=== PATIENT | female | born 1940 | race Caucasian/White ===

== ENCOUNTER → 2016-07-16 | Outpatient (CLI) | payer MEDICARE, OTHER | LOC: OD 10:21 | PROVIDERS: ATTEND Nurse Practitioner | DX: M25.511 Pain in right shoulder (principal); M25.512 Pain in left shoulder; M19.012 Primary osteoarthritis, left shoulder; M19.011 Primary osteoarthritis, right shoulder ==

== ENCOUNTER → 2016-10-10 | Outpatient (CLI) | payer MEDICARE, OTHER ==
--- NOTE | 2016-10-10 10:55 | RADIOLOGY REPORT (SQ) ---
EXAM DESCRIPTION: CHEST PA/LATERAL COMPLETED DATE/TIME: 10/10/2016 10:31 am REASON FOR STUDY: PRE OP COMPARISON: None. EXAM PARAMETERS: NUMBER OF VIEWS: two views TECHNIQUE: Digital Frontal and Lateral radiographic views of the chest acquired. RADIATION DOSE: NA LIMITATIONS: none FINDINGS: LUNGS AND PLEURA: No opacities, masses or pneumothorax. No pleural effusion. MEDIASTINUM AND HILAR STRUCTURES: No masses or contour abnormalities. HEART AND VASCULAR STRUCTURES: Heart normal size. No evidence for failure. BONES: No acute findings. HARDWARE: None in the chest. OTHER: No other significant finding. IMPRESSION: NO SIGNIFICANT RADIOGRAPHIC FINDING IN THE CHEST. TECHNICAL DOCUMENTATION: JOB ID: [id number] [employer]- All Rights Reserved
[2016-10-10 10:56] LABS: ABSOLUTE BASOPHILS # (AUTO) 0.1 10^3/uL (0.0-0.2); ABSOLUTE EOSINOPHILS # (AUTO) 0.8 10^3/uL (0.0-0.6); ABSOLUTE LYMPHOCYTES (AUTO) 1.9 10^3/uL (0.5-4.7); ABSOLUTE MONOCYTES (AUTO) 0.7 10^3/uL (0.1-1.4); BASOPHILS % (AUTO) 0.7 % (0-2); EOSINOPHILS % (AUTO) 6.9 % (0-6); HEMATOCRIT 39.3 % (36.0-47.0); HEMOGLOBIN 12.9 g/dL (12.0-15.5); HGB HCT DIFFERENCE -0.6; LYMPHOCYTES % (AUTO) 16.6 % (13-45); MEAN CORPUSCULAR HEMOGLOBIN 31.7 pg (27.0-33.4); MEAN CORPUSCULAR HGB CONC 32.9 g/dL (32.0-36.0); MEAN CORPUSCULAR VOLUME 96 fl (80-97); MONOCYTES % (AUTO) 6.2 % (3-13); RED BLOOD COUNT 4.08 10^6/uL (3.72-5.28); RED CELL DISTRIBUTION WIDTH 13.1 % (11.5-14.0); SEGMENTED NEUTROPHILS % (AUTO) 69.6 % (42-78); WHITE BLOOD COUNT 11.5 10^3/uL (4.0-10.5)
[2016-10-10 11:21] LABS: ANION GAP 9 (5-19); BLOOD UREA NITROGEN 14 mg/dL (7-20); CALCIUM 9.9 mg/dL (8.4-10.2); CARBON DIOXIDE 27 mmol/L (22-30); CHLORIDE 107 mmol/L (98-107); CREATININE RESULT 0.82 mg/dL (0.52-1.25); GLUCOSE 97 mg/dL (75-110); POTASSIUM 4.2 mmol/L (3.6-5.0); SODIUM 143.2 mmol/L (137-145)
[2016-10-10 18:57] LABS: APPEARANCE,URINE CLEAR; BILIRUBIN,URINE NEGATIVE (NEGATIVE); GLUCOSE, URINE NEGATIVE (NEGATIVE); KETONES,URINE NEGATIVE (NEGATIVE); LEUKOCYTE ESTERASE,URINE NEGATIVE (NEGATIVE); NITRITE,URINE NEGATIVE (NEGATIVE); PROTEIN,URINE NEGATIVE (NEGATIVE); URINE SPECIFIC GRAVITY 1.004; UROBILINOGEN,URINE NEGATIVE mg/dL (<2.0)
--- NOTE | 2016-10-11 17:29 | EKG REPORT ---
SEVERITY:- ABNORMAL ECG - SINUS RHYTHM LEFT ATRIAL ABNORMALITY NONSPECIFIC T ABNORMALITIES, INFERIOR LEADS : Confirmed by: Jose Carlos Mcgill 11-Oct-2016 17:29:01
== END ==
LOC: OD 09:54
PROVIDERS: ATTEND Orthopaedic Surgery
DX: Z01.810 Encounter for preprocedural cardiovascular examination (principal); Z01.812 Encounter for preprocedural laboratory examination; Z01.818 Encounter for other preprocedural examination
CPT/HCPCS: 36415; 71020; 80048; 81001; 85025; 93005; 93010

== ENCOUNTER → 2016-11-28 | Outpatient (CLI) | payer MEDICARE, OTHER ==
[2016-11-28 10:02] LABS: HEMATOCRIT 39.6 % (36.0-47.0); HEMOGLOBIN 13.4 g/dL (12.0-15.5); HGB HCT DIFFERENCE 0.6; MEAN CORPUSCULAR HEMOGLOBIN 33.2 pg (27.0-33.4); MEAN CORPUSCULAR HGB CONC 33.9 g/dL (32.0-36.0); MEAN CORPUSCULAR VOLUME 98 fl (80-97); RED BLOOD COUNT 4.04 10^6/uL (3.72-5.28); RED CELL DISTRIBUTION WIDTH 13.5 % (11.5-14.0); WHITE BLOOD COUNT 7.9 10^3/uL (4.0-10.5)
[2016-11-28 10:35] LABS: ALANINE AMINOTRANSFERASE 35 U/L (9-52); ALBUMIN 4.3 g/dL (3.5-5.0); ALKALINE PHOSPHATASE 80 U/L (38-126); ANION GAP 11 (5-19); ASPARTATE AMINO TRANSFERASE 30 U/L (14-36); BILIRUBIN,DIRECT 0.4 mg/dL (0.0-0.4); BILIRUBIN,TOTAL 0.9 mg/dL (0.2-1.3); BLOOD UREA NITROGEN 13 mg/dL (7-20); CALCIUM 10.1 mg/dL (8.4-10.2); CARBON DIOXIDE 27 mmol/L (22-30); CHLORIDE 103 mmol/L (98-107); CHOLESTEROL 224.28 mg/dL (0-200); CREATININE RESULT 0.95 mg/dL (0.52-1.25); Direct HDL 53 mg/dL (>40); GLUCOSE 97 mg/dL (75-110); MAGNESIUM 1.9 mg/dL (1.6-2.3); POTASSIUM 4.1 mmol/L (3.6-5.0); SODIUM 140.8 mmol/L (137-145); TOTAL PROTEIN 7.3 g/dL (6.3-8.2); TRIGLYCERIDES 198 mg/dL (<150)
[2016-11-28 10:45] LABS: DIRECT LDL 136 mg/dL (<100)
[2016-11-28 10:56] LABS: VLDL CHOLESTEROL 39.6 mg/dL (10-31)
== END ==
LOC: OD 09:02
PROVIDERS: ATTEND Internal Medicine Cardiovascular Disease
DX: E78.00 Pure hypercholesterolemia, unspecified (principal); Z79.899 Other long term (current) drug therapy
CPT/HCPCS: 36415; 80048; 80061; 80076; 83735; 84443; 85027

== ENCOUNTER 2017-01-22 07:39 | Day surgery (SDC) | payer MEDICARE, OTHER ==
[2017-01-15 09:00] LABS: ABSOLUTE BASOPHILS # (AUTO) 0.1 10^3/uL (0.0-0.2); ABSOLUTE EOSINOPHILS # (AUTO) 0.3 10^3/uL (0.0-0.6); ABSOLUTE MONOCYTES (AUTO) 0.5 10^3/uL (0.1-1.4); ABSOLUTE NEUT (AUTO) 3.9 10^3/uL (1.7-8.2); BASOPHILS % (AUTO) 0.9 % (0-2); EOSINOPHILS % (AUTO) 3.9 % (0-6); HEMATOCRIT 41.2 % (36.0-47.0); HEMOGLOBIN 14.1 g/dL (12.0-15.5); HGB HCT DIFFERENCE 1.1; LYMPHOCYTES % (AUTO) 30.2 % (13-45); MEAN CORPUSCULAR HEMOGLOBIN 32.9 pg (27.0-33.4); MEAN CORPUSCULAR HGB CONC 34.3 g/dL (32.0-36.0); MEAN CORPUSCULAR VOLUME 96 fl (80-97); MONOCYTES % (AUTO) 7.8 % (3-13); RED CELL DISTRIBUTION WIDTH 13.4 % (11.5-14.0); SEGMENTED NEUTROPHILS % (AUTO) 57.2 % (42-78); WHITE BLOOD COUNT 6.8 10^3/uL (4.0-10.5)
[2017-01-15 09:11] LABS: APPEARANCE,URINE CLEAR; BILIRUBIN,URINE NEGATIVE (NEGATIVE); GLUCOSE, URINE NEGATIVE (NEGATIVE); KETONES,URINE NEGATIVE (NEGATIVE); LEUKOCYTE ESTERASE,URINE NEGATIVE (NEGATIVE); NITRITE,URINE NEGATIVE (NEGATIVE); PROTEIN,URINE NEGATIVE (NEGATIVE); URINE SPECIFIC GRAVITY 1.003; UROBILINOGEN,URINE NEGATIVE mg/dL (<2.0)
[2017-01-15 09:20] LABS: ANION GAP 11 (5-19); BLOOD UREA NITROGEN 14 mg/dL (7-20); CALCIUM 10.6 mg/dL (8.4-10.2); CARBON DIOXIDE 29 mmol/L (22-30); CHLORIDE 102 mmol/L (98-107); CREATININE RESULT 0.92 mg/dL (0.52-1.25); GLUCOSE 102 mg/dL (75-110); SODIUM 142.4 mmol/L (137-145)
--- NOTE | 2017-01-15 10:01 | EKG REPORT ---
SEVERITY:- NORMAL ECG - SINUS RHYTHM : Confirmed by: Velma Berkowitz MD 15-Jan-2017 10:01:17
[~2017-01-22 07:39] MED LIST: BUPIVACAINE HCL 0.5 % INJ/PF 30 ML SDV ONE; CEFAZOLIN 2 GM/D5W RTU 2 GM/50 ML RTUPB IV PRN; EPINEPHRINE INJ/PF 1 MG/1 ML AMPULE ONE; LACTATED RINGERS 1000 ML IV PRN; LIDOCAINE 0.5% INJ-PF (5 MG/ML) 50 ML SDV SUBCUT PRN
[2017-01-22] MEDS ORDERED: FENTANYL CITRATE INJ/PF 250 MCG/5 ML AMPULE ONE (09:05)
[2017-01-22] MEDS ORDERED: IBUPROFEN INJ 800 MG/8 ML VIAL IV ONE (09:06)
[2017-01-22] MEDS ORDERED: MIDAZOLAM 2 MG/2 ML INJ ONE (09:06)
[2017-01-22] MEDS ORDERED: PROPOFOL INJ 200 MG/20 ML VIAL IV ONE (09:06)
[2017-01-22] MEDS ORDERED: ACETAMINOPHEN 100 ML IV ONE (09:06)
[2017-01-22] MEDS ORDERED: DEXAMETHASONE SOD PHOSPHATE INJ 4 MG/1 ML VIAL ONE (09:06)
[2017-01-22] MEDS ORDERED: ONDANSETRON HCL INJ/PF 4 MG/2 ML SDV ONE (09:06)
[2017-01-22] MEDS ORDERED: MORPHINE SULFATE 10 MG/ML INJ ONE (09:07)
[2017-01-22] MEDS ORDERED: PROMETHAZINE HCL INJ 25 MG/1 ML VIAL IV PRN ×2 (10:59)
[2017-01-22] MEDS ORDERED: DIPHENHYDRAMINE HCL 50 MG/ML VIAL IV PRN (10:59)
[2017-01-22] MEDS ORDERED: MEPERIDINE HCL/PF INJ 25 MG/1 ML DISP.SYRIN IV PRN (10:59)
[2017-01-22] MEDS ORDERED: MORPHINE SULFATE 10 MG/ML INJ IV PRN (10:59)
[2017-01-22] MEDS ORDERED: FENTANYL CITRATE INJ/PF 100 MCG/2 ML AMPUL IV PRN ×3 (10:59)
[2017-01-22] MEDS ORDERED: SUCCINYLCHOLINE CHLORIDE INJ 200 MG/10 ML VIAL ONE (11:01)
--- NOTE | 2017-01-22 11:55 | Operative Report ---
Operative Report DATE OF SURGERY: 01/22/17 PREOPERATIVE DIAGNOSIS: Left shoulder full-thickness rotator cuff tear. POSTOPERATIVE DIAGNOSIS: Left shoulder small full-thickness rotator cuff tear OPERATION: Left shoulder arthroscopic rotator cuff repair SURGEON: SEAN HACKETT ANESTHESIA: GA TISSUE REMOVED OR ALTERED: none COMPLICATIONS: None ESTIMATED BLOOD LOSS: 20mL INTRAOPERATIVE FINDINGS: As above PROCEDURE: IMPLANTS: 4.75 bio composite swivel lock 2 DESCRIPTION OF PROCEDURE: Patient was brought to the operating room placed in supine position. After successfully induced and intubated the patient patient was placed in the beachchair position the head and endotracheal tube was secured appropriately. The left shoulder was prepped and draped in a normal surgical fashion. A timeout was done identifying the left shoulder as the correct site. After inflating the glenohumeral joint with sterile saline solution an 11 blade was used to establish the posterior portal. The arthroscope was introduced and return of fluid was seen showing that we successfully penetrated the glenohumeral joint. With the use of spinal needle we're able to vandana the anterior portal and using an 11 blade able to establish anterior portal. A cannula was introduced through the anterior portal. At this point diagnostic scope was done. Patient had a pinhole full-thickness tear of the rotator cuff. A lateral portal was established 11 blade. 4.0mm shaver was introduced and was used to prepare the tear and the bone for preparation of anchor placement. Once I was satisfied with the preparation I then redirected my scope into the subacromial space. I was able to enlarge the tear to allow for anchor placement. A percutaneous incision was then just adjacent to the acromion on the lateral aspect. Through this percutaneous hole the awl was used to prepare the hole for an anchor. [place] was percutaneously sent flushed with the bone just adjacent to the articular margin.. Fiber tape and FiberWire sutures were passed through the anterior portal for proper suture management. With the use of the scorpion and I proceeded to pass the sutures through the rotator cuff tendon with proper suture management was able to pass the strands either through percutaneous hole or the anterior portal. Once I was satisfied with placement of all my sutures I then proceeded to do my arthroscopic knots of the firewire sutures only. Fiber tape was then passed with the FiberWire through the swivel lock. At this point the strands were used to do our lateral row. Bicomposite swivel lock was used and the lateral aspect of the humerus was then cleaned off with a shaver and electrocautery. Once identified once I was replacement I proceeded to use my awl to do my hole. This this point the sutures were adequately tensioned and subluxed for inserted and secured securing and increasing the footprint of the rotator cuff repair. Remaining strands were cut with the arthroscopic cutter. Final pictures were taking showing my repair. At this point fluid from the shoulder was removed camera and instruments were all removed. I proceeded to close my portal sites with 3-0 nylon. Xeroform 4 x 4 dressing followed by ABDs pads and Medipore tape was applied. Patient was placed in a sling and returned to supine position where he was successfully extubated and taken to PACU in stable condition.
[2017-01-22] MEDS ORDERED: OXYCODONE-ACETAMINOPHEN 5-325 MG TABLET PO PRN ×2 (11:57)
--- NOTE | 2017-01-22 11:57 | PDOC DISCHARGE SUMMARY ---
Discharge Summary (SDC) - Discharge Final Diagnosis: Left shoulder arthroscopic rotator cuff repair Date of Surgery: 01/22/17 Discharge Date: 01/22/17 Condition: Good Treatment or Instructions: Patient is instructed to follow up in 10-14 days. Patient instructed to remove dressing in 4 days then can shower and apply Band- Aids as needed. Patient to wear sling for comfort but okay to remove for shower and pendulum exercises. Pendulum exercises are instructed to be done 3 times a day ideally with breakfast, lunch, dinners and showers. Patient instructed to call if there is any signs of redness or drainage fevers or chills. Prescriptions: Oxycodone HCl/Acetaminophen [Percocet 5-325 mg Tablet] 1 - 2 tab PO ASDIR PRN # 60 tablet PRN Reason: Referrals: SANTIAGO PINTO NP-C [Primary Care Provider] - Discharge Diet: As Tolerated Respiratory Treatments at Home: Deep Breathing/Coughing Discharge Activity: No Lifting/Push/Pulling Home Care Assistance: None Needed Report the Following to Your Physician Immediately: Shortness of Breath, Vomiting, Increase in Pain, Fever over 101 Degrees, Unusual Bleeding, Redness, Swelling, Warmth, Drainage-Yellow, Drainage-Cha, Drainage-Green, Drainage-Foul Smelling
[2017-01-22] MEDS: FENTANYL CITRATE INJ/PF 100 MCG/2 ML AMPUL ONE ×2 (12:12→12:17)
[2017-01-22] MEDS ORDERED: ONDANSETRON 4 MG TAB.RAPDIS ONE (15:17)
[2017-01-22 16:02] VITALS: BP 125/62
== END 2017-01-22 15:45 | disposition home or self-care (01) ==
LOC: OROUT 07:39
PROVIDERS: ATTEND Orthopaedic Surgery
PROC: 0LM24ZZ Reattachment of Left Shoulder Tendon, Percutaneous Endoscopic Approach (ICD-10-PCS; principal; 2017-01-22 10:00)
DX: M75.122 Complete rotator cuff tear or rupture of left shoulder, not specified as traumatic (principal); I10 Essential (primary) hypertension; M19.90 Unspecified osteoarthritis, unspecified site; R01.1 Cardiac murmur, unspecified; Z79.01 Long term (current) use of anticoagulants; Z79.1 Long term (current) use of non-steroidal anti-inflammatories (NSAID); Z79.899 Other long term (current) drug therapy
CPT/HCPCS: 93005; 36415 ×2; 84132; 85025; 80048; 81001; 93010; 29827; C1713; J2250; J1100; J0171; A9270 ×2; J3010 ×2; J0330; J2405; J2704; J0690; J0131; J1741; 1630; J2270; S0119

== ENCOUNTER 2017-06-18 08:21 | Day surgery (SDC) | payer MEDICARE, OTHER ==
[2017-06-11 09:44] LABS: APPEARANCE,URINE CLEAR; BILIRUBIN,URINE NEGATIVE (NEGATIVE); COLOR,URINE STRAW; GLUCOSE, URINE NEGATIVE (NEGATIVE); KETONES,URINE NEGATIVE (NEGATIVE); LEUKOCYTE ESTERASE,URINE NEGATIVE (NEGATIVE); NITRITE,URINE NEGATIVE (NEGATIVE); PROTEIN,URINE NEGATIVE (NEGATIVE); URINE SPECIFIC GRAVITY 1.005; UROBILINOGEN,URINE NEGATIVE mg/dL (<2.0)
[2017-06-11 09:45] LABS: ABSOLUTE BASOPHILS # (AUTO) 0.1 10^3/uL (0.0-0.2); ABSOLUTE EOSINOPHILS # (AUTO) 0.6 10^3/uL (0.0-0.6); ABSOLUTE LYMPHOCYTES (AUTO) 1.8 10^3/uL (0.5-4.7); ABSOLUTE MONOCYTES (AUTO) 0.6 10^3/uL (0.1-1.4); ABSOLUTE NEUT (AUTO) 4.8 10^3/uL (1.7-8.2); BASOPHILS % (AUTO) 0.9 % (0-2); EOSINOPHILS % (AUTO) 7.7 % (0-6); HEMATOCRIT 38.7 % (36.0-47.0); HEMOGLOBIN 13.2 g/dL (12.0-15.5); LYMPHOCYTES % (AUTO) 22.7 % (13-45); MEAN CORPUSCULAR HEMOGLOBIN 32.2 pg (27.0-33.4); MEAN CORPUSCULAR HGB CONC 34.1 g/dL (32.0-36.0); MEAN CORPUSCULAR VOLUME 94 fl (80-97); MONOCYTES % (AUTO) 7.8 % (3-13); PLATELET COUNT 313 10^3/uL (150-450); RED BLOOD COUNT 4.11 10^6/uL (3.72-5.28); RED CELL DISTRIBUTION WIDTH 13.2 % (11.5-14.0); SEGMENTED NEUTROPHILS % (AUTO) 60.9 % (42-78); TOTAL CELLS COUNTED % (AUTO) 100 %; WHITE BLOOD COUNT 7.8 10^3/uL (4.0-10.5)
[2017-06-11 10:08] LABS: ANION GAP 12 (5-19); BLOOD UREA NITROGEN 15 mg/dL (7-20); CALCIUM 10.6 mg/dL (8.4-10.2); CARBON DIOXIDE 32 mmol/L (22-30); CHLORIDE 101 mmol/L (98-107); GLUCOSE 110 mg/dL (75-110); POTASSIUM 4.6 mmol/L (3.6-5.0); SODIUM 145.1 mmol/L (137-145)
--- NOTE | 2017-06-11 12:45 | RADIOLOGY REPORT (SQ) ---
EXAM DESCRIPTION: CHEST PA/LATERAL COMPLETED DATE/TIME: 06/11/2017 10:30 am REASON FOR STUDY: PRE OP COMPARISON: 10/10/2016 NUMBER OF VIEWS: Two view. TECHNIQUE: Frontal and lateral radiographic views of the chest acquired. LIMITATIONS: None. FINDINGS: LUNGS AND PLEURA: Minimal vague density adjacent to the left heart border unchanged since the previous study. May represent anterior rib with costochondral junction. MEDIASTINUM AND HILAR STRUCTURES: No masses or contour abnormalities. HEART AND VASCULATURE: Heart normal size. No evidence for failure. BONY STRUCTURES: No acute findings. HARDWARE: None. OTHER: No other significant finding. IMPRESSION: No active cardiopulmonary disease. TECHNICAL DOCUMENTATION: JOB ID: [id number] [email or web address]- All Rights Reserved
--- NOTE | 2017-06-11 13:22 | EKG REPORT ---
SEVERITY:- BORDERLINE ECG - SINUS RHYTHM NONSPECIFIC ST-T CHANGES- INFERIOR LEADS : Confirmed by: Buster Goodwin MD 11-Jun-2017 13:21:44
[~2017-06-18 08:21] MED LIST changes: -CEFAZOLIN 2 GM/D5W RTU 2 GM/50 ML RTUPB IV PRN; +CEFAZOLIN SODIUM 2 GM in DEXTROSE 5%-WATER 100 ML IV PRN; +CEFAZOLIN SODIUM 2 GM in NORMAL SALINE 100 ML IV PRN
[2017-06-18] MEDS ORDERED: SCOPOLAMINE HYDROBROMIDE 1.5 MG PATCH.TD72 TD ONE (10:30)
[2017-06-18] MEDS ORDERED: LIDOCAINE 2% INJ-PF (20 MG/ML) 10 ML AMPUL ONE (11:03)
[2017-06-18] MEDS ORDERED: MIDAZOLAM 2 MG/2 ML INJ ONE (11:04)
[2017-06-18] MEDS ORDERED: FENTANYL CITRATE INJ/PF 100 MCG/2 ML AMPUL ONE ×2 (11:04→13:50)
[2017-06-18] MEDS ORDERED: ONDANSETRON HCL INJ/PF 4 MG/2 ML SDV ONE (11:04)
[2017-06-18] MEDS ORDERED: DEXAMETHASONE SOD PHOSPHATE INJ 4 MG/1 ML VIAL ONE (11:04)
[2017-06-18] MEDS ORDERED: ACETAMINOPHEN 100 ML IV ONE (11:05)
[2017-06-18] MEDS ORDERED: PROPOFOL INJ 200 MG/20 ML VIAL IV ONE (11:05)
[2017-06-18] MEDS ORDERED: EPHEDRINE SULFATE INJ 50 MG/1 ML AMPULE ONE (11:06)
[2017-06-18] MEDS ORDERED: OXYCODONE-ACETAMINOPHEN 5-325 MG TABLET PO PRN ×4 (12:44→15:21)
[2017-06-18] MEDS ORDERED: MORPHINE SULFATE 10 MG/ML INJ IV PRN (12:44)
[2017-06-18] MEDS ORDERED: PROMETHAZINE HCL INJ 25 MG/1 ML VIAL IV PRN ×2 (12:44)
[2017-06-18] MEDS ORDERED: FENTANYL CITRATE INJ/PF 100 MCG/2 ML AMPUL IV PRN ×2 (12:44)
[2017-06-18] MEDS ORDERED: DIPHENHYDRAMINE HCL 50 MG/ML VIAL IV PRN (12:44)
[2017-06-18] MEDS ORDERED: MEPERIDINE HCL/PF INJ 25 MG/1 ML DISP.SYRIN IV PRN (12:44)
--- NOTE | 2017-06-18 13:29 | Operative Report ---
Operative Report DATE OF SURGERY: 06/18/17 PREOPERATIVE DIAGNOSIS: Right shoulder rotator cuff tear and degenerative SLAP tear POSTOPERATIVE DIAGNOSIS: Same OPERATION: Right shoulder arthroscopic rotator cuff repair and subpectoralis biceps tenodesis SURGEON: SEAN HACKETT ANESTHESIA: GA TISSUE REMOVED OR ALTERED: Long head of the biceps COMPLICATIONS: None ESTIMATED BLOOD LOSS: 20 mL INTRAOPERATIVE FINDINGS: As above PROCEDURE: IMPLANTS: Arthrex 4.75 mm by composite swivel lock 2 DESCRIPTION OF PROCEDURE: Patient was brought to the operating room placed in supine position. After successfully induced and intubated the patient patient was placed in the beachchair position the head and endotracheal tube was secured appropriately. The right shoulder was prepped and draped in a normal surgical fashion. A timeout was done identifying the right shoulder as the correct site. After inflating the glenohumeral joint with sterile saline solution an 11 blade was used to establish the posterior portal. The arthroscope was introduced and return of fluid was seen showing that we successfully penetrated the glenohumeral joint. With the use of spinal needle we're able to vandana the anterior portal and using an 11 blade able to establish anterior portal. A cannula was introduced through the anterior portal. At this point diagnostic scope was done. At first glance patient had a degenerative type II SLAP tear and was probed showing the detachment. Also when I turned my attention to the rotator cuff was evidence of showing the full- thickness rotator cuff tear. The articulation was intact. No loose bodies. A lateral portal was established 11 blade. [place] cannula was introduced to secure the lateral portal. 4.0mm shaver was introduced and was used to debride edges of the tear as well as bur the bone for preparation of anchor placement. Once I was satisfied with the preparation I then redirected my scope into the subacromial space. Bursitis that was resected. No large hook of the acromion or spur. The tear was cleaned and the subacromial space and delineated. A percutaneous incision was then just adjacent to the acromion on the lateral aspect. Through this percutaneous hole the awl was used to prepare the hole for an anchor. [place] was percutaneously sent flushed with the bone just adjacent to the articular margin.[Same steps were taken for placement of our second anchor more posteriorly]. Sutures were passed through the anterior portal for proper suture management. With the use of the scorpion and I proceeded to pass the sutures through the rotator cuff tendon with proper suture management was able to pass the strands either through percutaneous hole or the anterior portal. Once I was satisfied with placement of all my sutures I then proceeded to do my arthroscopic knots. At this point the strands were used to do our lateral row. [] Bicomposite swivel lock were used for the lateral row fixation. Lateral aspect of the humerus was then cleaned off with a shaver and electrocautery. Once identified placementof the swivel lock, I proceeded to use my awl to do my hole. This this point the sutures were adequately tensioned and secured. Swivel lock was inserted and screwed in, securing and increasing the footprint of the rotator cuff repair. Remaining strands were cut with the arthroscopic cutter. Final pictures were taking showing my repair. At this point fluid from the shoulder was removed camera and instruments were all removed. I turned my attention to the subpectoralis biceps tenodesis portion of the case. I used a 15 blade and did a inch and a half incision on the anterior aspect of the arm adjacent to the axillary fold. I used electrocautery to obtain hemostasis of the subcutaneous tissue bleed. I used Metzenbaum scissors and 2 pierced and split the fascial tissue covering the biceps and deltoid. I used then combination of my finger and 90 clamp to palpate the long head of biceps and bicipital groove and capturing hook the tendon that was tenotomized. This was pulled through my incision successfully. I used a fiber loop to then secure my muscular tendinous portion which was approximately 2 cm. The remaining biceps was cut and discarded. The loop was, and the 2 strands were then fed through the tenodesis button. These were secured and then I proceeded to use Hom[place] to expose the side of the humeral shaft and was able to used a 4 mm spade tip guidepin to drill the anterior cortex. This was removed and then the loaded button was then inserted and then removing the disposable portion was able to flip the button and securing the biceps onto the anterior cortex of the humerus. Half hitch knots were done to further secure the biceps. Remaining strand was cut with a fiber wire scissors. I used 0 Vicryl to approximate the subcutaneous tissue. I used 3-0 nylon to do closure of my incision. I proceeded to close my portal sites with 3 -0 nylon. Xeroform 4 x 4 dressing followed by ABDs pads and Medipore tape was applied. Patient was placed in a sling and returned to supine position where he was successfully extubated and taken to PACU in stable condition.
--- NOTE | 2017-06-18 13:33 | Discharge Summary ---
Discharge Summary (SDC) - Discharge Final Diagnosis: Right shoulder rotator cuff repair and biceps tenodesis Date of Surgery: 06/18/17 Discharge Date: 06/18/17 Condition: Good Treatment or Instructions: Patient is instructed to follow up in 10-14 days. Patient instructed to remove dressing in 4 days then can shower and apply Band- Aids as needed. Patient to wear sling for comfort but okay to remove for shower and pendulum exercises. Pendulum exercises are instructed to be done 3 times a day ideally with breakfast, lunch, dinners and showers. Patient instructed to call if there is any signs of redness or drainage fevers or chills. Prescriptions: Ondansetron HCl [Zofran 4 mg Tablet] 1 - 2 tab PO Q6HP PRN #20 tablet PRN Reason: Oxycodone HCl/Acetaminophen [Percocet 5-325 mg Tablet] 1 - 2 tab PO ASDIR PRN # 30 tablet PRN Reason: Referrals: SANTIAGO PINTO NP-C [Primary Care Provider] - Discharge Diet: As Tolerated Respiratory Treatments at Home: Deep Breathing/Coughing Discharge Activity: No Driving, No Lifting/Push/Pulling, Walk Frequently Home Care Assistance: None Needed Report the Following to Your Physician Immediately: Shortness of Breath, Vomiting, Increase in Pain, Fever over 101 Degrees, Unusual Bleeding, Redness, Swelling, Warmth, Increased Soreness, Drainage-Yellow, Drainage-Cha, Drainage- Green, Drainage-Foul Smelling
[2017-06-18] MEDS: FENTANYL CITRATE INJ/PF 100 MCG/2 ML AMPUL IV PRN ×2 (14:02→14:05)
[2017-06-18] MEDS ORDERED: HYDROMORPHONE HCL INJ/PF 2 MG/ML AMPULE ONE (15:55)
[2017-06-18] MEDS ORDERED: SUCCINYLCHOLINE CHLORIDE INJ 200 MG/10 ML VIAL ONE (16:16)
[2017-06-18] MEDS ORDERED: NEOSTIGMINE METHYLSULFATE 10 MG/10 ML VIAL ONE (16:16)
[2017-06-18] MEDS ORDERED: VECURONIUM BROMIDE INJ 10 MG VIAL IV ONE (16:16)
[2017-06-18] MEDS ORDERED: GLYCOPYRROLATE INJ 0.4 MG/2 ML VIAL ONE (16:16)
[2017-06-18 16:58] VITALS: BP 132/61
== END 2017-06-18 16:55 | disposition home or self-care (01) ==
LOC: OROUT 08:21
PROVIDERS: ATTEND Orthopaedic Surgery
PROC: 0LM14ZZ Reattachment of Right Shoulder Tendon, Percutaneous Endoscopic Approach (ICD-10-PCS; 2017-06-18)
PROC: 0LM30ZZ Reattachment of Right Upper Arm Tendon, Open Approach (ICD-10-PCS; principal; 2017-06-18 10:30)
DX: M75.121 Complete rotator cuff tear or rupture of right shoulder, not specified as traumatic (principal); S43.431A Superior glenoid labrum lesion of right shoulder, initial encounter; X58.XXXA Exposure to other specified factors, initial encounter; I10 Essential (primary) hypertension; E07.9 Disorder of thyroid, unspecified; Z79.899 Other long term (current) drug therapy
CPT/HCPCS: 24340; 93005; 36415 ×2; 84132; 85025; 80048; 81001; 71046; 93010; 29827; C1713 ×2; J2250; J3490 ×4; J0690; J1100; J0171; J3010; A9270; J1170; J0330; J2405; J2704; J0131; 1630

== ENCOUNTER → 2019-12-12 | Outpatient (CLI) | payer MEDICARE, OTHER | LOC: WI 13:50 | PROVIDERS: ATTEND Nurse Practitioner Family | DX: Z12.31 Encounter for screening mammogram for malignant neoplasm of breast (principal) | CPT/HCPCS: 77067 ==